=== PATIENT | male | born 1950 | race Caucasian/White ===

== ENCOUNTER → 2019-06-05 | Outpatient (CLI) | payer BC, MEDICARE, OTHER | LOC: COL.RAD 15:17 | DX: C06.9 Malignant neoplasm of mouth, unspecified (principal); C79.2 Secondary malignant neoplasm of skin ==

== ENCOUNTER 2019-06-19 15:15 | Outpatient (RCR) | payer BC, OTHER ==
[2019-08-06] MEDS ORDERED: AUGMENTIN 400100 ML PO (06:41)
[2019-08-06] MEDS ORDERED: NORCO 325 MG-51 TAB PO ×2 (06:42→08:01)
[2019-08-06] MEDS ORDERED: ADVIL PM 38 MG-1 TAB PO (06:43)
[2019-08-06] MEDS ORDERED: PERIDEX (CHLOR480 ML MM (06:44)
== END 2019-08-27 | disposition home or self-care (01) ==
LOC: WSST
DX: R13.11 Dysphagia, oral phase (principal); R13.12 Dysphagia, oropharyngeal phase; C06.9 Malignant neoplasm of mouth, unspecified; C79.2 Secondary malignant neoplasm of skin

== ENCOUNTER 2019-07-27 05:08 | Emergency (ER) | payer BC, OTHER ==
[~2019-07-27] VITALS: Ht 152.4 cm; Wt 56.4 kg
[2019-07-27 06:03] VITALS: BP 97/73; PULSE 84; TEMP 98.8
== END 2019-07-27 06:10 | disposition home or self-care (01) ==
LOC: COL.ER 05:08
DX: K06.8 Other specified disorders of gingiva and edentulous alveolar ridge (principal); C04.9 Malignant neoplasm of floor of mouth, unspecified; M19.90 Unspecified osteoarthritis, unspecified site; Z87.891 Personal history of nicotine dependence

== ENCOUNTER 2019-07-28 06:22 | Emergency (ER) | payer BC, MEDICARE, OTHER ==
[~2019-07-28] VITALS: Ht 152.4 cm; Wt 65.5 kg
[2019-07-28 06:30] VITALS: TEMP 98.6
[2019-07-28 06:55] LABS: MEAN CELL VOLUME 97 fl (80.0-100.0); MEAN CORPUSCULAR HGB CONC 32 g/dl (33.0-37.0); MEAN PLATELET VOLUME 10.7 fl (7.4-10.4); PLATELET COUNT 398 K/mm3 (130-400); RED BLOOD COUNT 2.79 M/mm3 (4.20-5.60)
[2019-07-28 07:01] LABS: HEMOGLOBIN 8.6 g/dl (13.5-18.0); MEAN CORPUSCULAR HEMOGLOBIN 31 pg (27.0-31.0)
[2019-07-28 07:02] LABS: HEMATOCRIT 27.1 % (42.0-52.0)
[2019-07-28 07:04] LABS: ALBUMIN 3.8 gm/dL (3.5-5.0); BILIRUBIN,TOTAL 0.6 mg/dL (0.0-1.0); CALCIUM 9.6 mg/dL (8.4-10.2); CREATININE, serum 0.9 (0.66-1.25); POTASSIUM 3.9 mmol/L (3.4-5.0); TOTAL PROTEIN 6.7 gm/dL (6.4-8.2)
[2019-07-28 07:30] LABS: BAND 3 % (0-10); LYMPHOCYTE 9 % (20.0-51.0); NEUTROPHILS 86 % (42.0-75.2); PLATELET ESTIMATE NORMAL (NORMAL)
[2019-07-28 07:31] LABS: ANISOCYTOSIS 1+; HYPOCHROMIA 1+; TOXIC GRANULATION PRESENT
[2019-07-28 09:09] VITALS: BP 100/64; PULSE 82
== END 2019-07-28 09:10 | disposition home or self-care (01) ==
LOC: COL.ER 06:22
PROVIDERS: Emergency Medicine
DX: C04.9 Malignant neoplasm of floor of mouth, unspecified (principal); D72.829 Elevated white blood cell count, unspecified; M19.90 Unspecified osteoarthritis, unspecified site; Z87.891 Personal history of nicotine dependence
CPT/HCPCS: A4216; J0696; J3010; J7040

== ENCOUNTER 2019-08-06 05:42 | Day surgery (SDC) | payer MEDICARE, OTHER ==
[~2019-08-06] VITALS: Ht 172.7 cm; Wt 65.5 kg
[2019-08-06 06:34] VITALS: BP 168/70; PULSE 73; TEMP 98.2
[2019-08-06] MEDS ORDERED: AUGMENTIN 400100 ML PO (06:41)
[2019-08-06] MEDS ORDERED: NORCO 325 MG-51 TAB PO ×2 (06:42→08:01)
[2019-08-06] MEDS ORDERED: ADVIL PM 38 MG-1 TAB PO (06:43)
[2019-08-06] MEDS ORDERED: PERIDEX (CHLOR480 ML MM (06:44)
[2019-08-06 06:46] LABS: ALBUMIN 4.1 gm/dL (3.5-5.0); CALCIUM 9.4 mg/dL (8.4-10.2); CREATININE, serum 0.87 (0.66-1.25); POTASSIUM 3.9 mmol/L (3.4-5.0)
[2019-08-06 07:52] VITALS: BP 97/58; PULSE 63
--- NOTE | 2019-08-06 07:52 | NUR ---
Patient returns to room 8 per cart from surgery and arouses to verbal stimuli. IV fluids infusing left forearm. Siderails up x2 and call light in reach. Spouse and son in room. Temp 98.3 and room air sats 99%. Dressing dry around the PEG tube site. Allowed to rest.
[2019-08-06 08:07] VITALS: BP 130/65; PULSE 60
--- NOTE | 2019-08-06 08:07 | NUR ---
More awake and taking few sips of water. Putty Maker and Human Performance Professor in the room talking with the patient and spouse.
[2019-08-06 08:22] VITALS: BP 120/92; PULSE 57
--- NOTE | 2019-08-06 08:22 | NUR ---
Steward/Stewardess Economy Class continues to talk with the patient and explain to the spouse and patient amounts of feedings and flushing prior to using and after using.
[2019-08-06 08:37] VITALS: BP 132/65; PULSE 58
--- NOTE | 2019-08-06 08:37 | NUR ---
Taking sips of ice water. Dressing remains dry around the PEG tube site. Given supplies for administering tube feeding. Provided 60cc syringes, medications cups, and measuring glasses.
[2019-08-06 08:52] VITALS: BP 153/62; PULSE 57
--- NOTE | 2019-08-06 08:52 | NUR ---
Denies need for pain medication. Drilling Rig Operator returns to room with nutrition supplements to be sent home with the patient.
--- NOTE | 2019-08-06 09:00 | NUR ---
Assisted up to the bathroom and gait is steay with standby assist. Able to void and returns to room. IV converted to INT.
--- NOTE | 2019-08-06 09:30 | NUR ---
[place] [employer] Machine Operator in the room and instructs the patient and spouse to go to [facility] to get feeding supplements. Patients spouse voiced concern of patient taking po [place] and wishes to have elixir.
--- NOTE | 2019-08-06 09:39 | NUR ---
Dr. Castaneda office notified of request for [place] elixir and patient may go to the office and get new script. Original script placed in shred box.
--- NOTE | 2019-08-06 09:45 | NUR ---
IV out and patient dresses self.
--- NOTE | 2019-08-06 09:55 | NUR ---
Patient dismissed to home per private vehicle driven by spouse and taken to the front door per wheelchair and assisted into car by Erin TURNER.
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
== END 2019-08-06 09:55 | disposition home or self-care (01) ==
LOC: SDCO 05:42
PROVIDERS: Surgery
DX: C10.8 Malignant neoplasm of overlapping sites of oropharynx (principal); C79.51 Secondary malignant neoplasm of bone; Z79.899 Other long term (current) drug therapy; Z98.52 Vasectomy status; Z80.0 Family history of malignant neoplasm of digestive organs; Z80.52 Family history of malignant neoplasm of bladder; Z80.3 Family history of malignant neoplasm of breast
CPT/HCPCS: J0690; J2704; J7120